=== PATIENT | male | born 1990 | race Two or more races ===

== ENCOUNTER 2020-07-31 17:46 | Inpatient (IN) | payer SELFPAY ==
[~2020-07-31] VITALS: Ht 175.3 cm; Wt 108.0 kg
[2020-07-31 20:12] LABS: Basophils # (auto) 0.1 10 ^3/uL (0-0.2); Basophils % (auto) 0.4 % (0.0-2.0); Eosinophils # (auto) 0 10 ^3/uL (0-0.8); Eosinophils % (auto) 0.1 % (0.0-7.0); Hematocrit 46.9 % (41.0-53.0); Hemoglobin 15.7 g/dL (13.5-17.5); Lymphocytes # (auto) 0.7 10 ^3/uL (0.4-5.4); Lymphocytes % (auto) 3.9 % (10.0-50.0); Mean Corpuscular Hemoglobin 30.7 pg (28.0-32.0); Mean Corpuscular Hgb Conc. 33.5 g/dL (32.0-36.0); Mean Corpuscular Volume 91.5 fL (80.0-100.0); Monocytes # (auto) 0.9 10 ^3/uL (0-1.3); Monocytes % (auto) 4.6 % (0.0-12.0); Neutrophils # (auto) 17.1 10 ^3/uL (1.6-8.6); Nucleated Red Blood Cells % 0.1 %; Platelet Count (auto) 242 10^3/uL (140-450); Red Blood Cells 5.13 10^6/uL (4.5-5.90); Red Cell Distribution Width 14.4 % (11.8-14.3); White Blood Cell 18.8 10^3/uL (4.4-10.8)
[2020-07-31 20:29] LABS: INR 1.03 (0.9-1.15); Partial Thromboplastin Time 26.6 sec (23.0-31.2)
[2020-07-31 20:31] LABS: Albumin 4.4 g/dL (3.4-5.0); Calcium 9.6 mg/dL (8.5-10.1)
[2020-07-31 20:35] LABS: BUN/Creatinine Ratio 11.6; Bilirubin, Total 0.9 mg/dL (0.2-1.0); Total Protein 8.3 g/dL (6.4-8.2)
[2020-07-31] MEDS ORDERED: ONDANSETRON HCL 4 MG/2 ML VIAL IV ONE (22:30)
[2020-07-31] MEDS ORDERED: MORPHINE SULFATE 4 MG/ML SYR/VIAL IV ONE (22:30)
[2020-08-01] MEDS ORDERED: cefTRIAXone 1GM/50ML D5W 50 ML IV ONE (05:15)
[2020-08-01] MEDS ORDERED: TEMAZEPAM 15 MG CAP PO PRN (06:15)
[2020-08-01] MEDS ORDERED: ACETAMINOPHEN 325 MG TAB PO PRN (06:15)
[2020-08-01] MEDS ORDERED: ONDANSETRON HCL 4 MG/2 ML VIAL IV PRN (06:15)
[2020-08-01] MEDS ORDERED: HYDROcodone-ACET 5/325MG TAB PO PRN (06:15)
--- NOTE | 2020-08-01 08:30 | NUR ---
MS admit from ER LISA JAIN admitted to tele/MS after SBAR received. Patient oriented to BROOKLYNN VUONG RN primary RN, unit, room, bed, and unit policies regarding patient care and visiting hours. Patient weighed by bedscale and encouraged to call if they need something. All questions and concerns addressed, patient verbalized understanding.
[2020-08-01 10:27] VITALS: BP 107/58
[2020-08-01] MEDS: FAMOTIDINE 20 MG TAB PO SCH ×2 (10:54→22:06)
[2020-08-01] MEDS: cefTRIAXone 1GM/50ML D5W 50 ML IV SCH (10:54)
[2020-08-01] MEDS: ENOXAPARIN SOD 40 MG/0.4 ML SYRINGE SC SCH (10:55)
[2020-08-01 12:09] VITALS: BP 112/64
[2020-08-01] MEDS: CLINDAMYCIN 600MG IV 50 ML IV SCH ×2 (15:16→22:07)
[2020-08-01 16:20] VITALS: BP 125/72
--- NOTE | 2020-08-01 17:04 | NUR ---
Discharge instructions given as ordered. Follow-up appointment information given and encourage patient to attend. All questions and concerns addressed. Patient verbalized understanding.IV removed with catheter intact, pressure dressing applied.Patient taken to vehicle declined wheelchair but ambulated with steady gait with all personal belongings, accompanied by staff and family member. No distress noted at time of departure.
--- NOTE | 2020-08-01 19:34 | NUR ---
RECEIVED PHONE CALL FROM MD SÁNCHEZ AND WANTED TO KNOW IF PATIENT HAS NEW IV INSERTED, TO RESUME IV ANTIBIOTICS -ORDERS ARE IN AND WILL GIVE ANTIBIOTICS AT TIMES THEY ARE ORDERED, AND TO OBTAIN A URINE SAMPLE. UPON ASSESSMENT, PATIENT HAS A IV 20 G ON THE LEFT AC INSERTED TODAY BY DAY RN. AND WILL OBTAIN URINE SAMPLE FROM PATIENT.
--- NOTE | 2020-08-01 19:42 | NUR ---
Patient was discharged as instructed but had to returned to unit. Patient came back Vital signs stable, I reassessed the patient , assessment within range. No distress patient is in bed resting comfortably. came to assess and talk to the patient.
[2020-08-01 20:32] LABS: Urine Bacteria NONE SEEN /hpf (None Seen); Urine Blood Negative /uL (Negative); Urine Mucus FEW (None Seen); Urine Specific Gravity 1.027 (1.001-1.035); Urine WBC 2 /hpf (0 - 3)
[2020-08-01 20:50] LABS: Amphetamine Screen, Urine NEGATIVE (NEGATIVE); Barbiturate Scree,Urine NEGATIVE (NEGATIVE); Benzodiazephine Screen, Urine NEGATIVE (NEGATIVE); Cannabinoid Screen, Urine NEGATIVE (NEGATIVE); Cocaine Screen, Urine NEGATIVE (NEGATIVE); Opiate Scree,Urine NEGATIVE (NEGATIVE); Phencyclidine Screen, Urine NEGATIVE (NEGATIVE)
[2020-08-01 22:00] VITALS: BP 126/68
[2020-08-02 05:00] VITALS: BP 111/70
[2020-08-02 06:08] LABS: Basophils # (auto) 0 10 ^3/uL (0-0.2); Basophils % (auto) 0.4 % (0.0-2.0); Eosinophils # (auto) 0.2 10 ^3/uL (0-0.8); Eosinophils % (auto) 1.9 % (0.0-7.0); Hematocrit 44.8 % (41.0-53.0); Hemoglobin 15.1 g/dL (13.5-17.5); Lymphocytes # (auto) 2.1 10 ^3/uL (0.4-5.4); Lymphocytes % (auto) 26.1 % (10.0-50.0); Mean Corpuscular Hgb Conc. 33.7 g/dL (32.0-36.0); Mean Corpuscular Volume 92.1 fL (80.0-100.0); Neutrophils # (auto) 4.7 10 ^3/uL (1.6-8.6); Neutrophils % (auto) 59.6 % (37.0-80.0); Nucleated Red Blood Cells % 0.2 %; Platelet Count (auto) 196 10^3/uL (140-450); Red Blood Cells 4.86 10^6/uL (4.5-5.90); Red Cell Distribution Width 14.7 % (11.8-14.3); White Blood Cell 7.9 10^3/uL (4.4-10.8)
[2020-08-02] MEDS: CLINDAMYCIN 600MG IV 50 ML IV SCH ×2 (06:21→14:28)
[2020-08-02 06:23] LABS: Potassium 3.6 mmol/L (3.5-5.1)
[2020-08-02 06:29] LABS: BUN/Creatinine Ratio 10.7; Calcium 9.2 mg/dL (8.5-10.1)
--- NOTE | 2020-08-02 07:25 | NUR ---
provided report to day rn. patient is resting in bed with no signs of distress. urines was sent earlier in shift. redness on left leg decreased.
[2020-08-02 09:00] VITALS: BP 109/46
[2020-08-02] MEDS: cefTRIAXone 1GM/50ML D5W 50 ML IV SCH (11:20)
[2020-08-02] MEDS: FAMOTIDINE 20 MG TAB PO SCH (11:20)
[2020-08-02] MEDS: ENOXAPARIN SOD 40 MG/0.4 ML SYRINGE SC SCH (11:21)
[2020-08-02 13:00] VITALS: BP 120/79
--- NOTE | 2020-08-02 16:27 | NUR ---
Called to let him know that I will be discharging the patient as ordered. MD aware and said to discharge patient. Also got an order to give him 2 days off work due to light activity ordered for patient.
[2020-08-02 16:51] VITALS: BP 105/48
== END 2020-08-02 18:15 | disposition home or self-care (01) | DRG 603 ==
LOC: ER 17:46 → OVERFLOW 17:47 → CENTRAL 08-01 08:33
PROVIDERS: ADMIT Nurse Practitioner; ATTEND Internal Medicine
DX: L03.116 Cellulitis of left lower limb (principal); F17.210 Nicotine dependence, cigarettes, uncomplicated; M10.9 Gout, unspecified; Z86.718 Personal history of other venous thrombosis and embolism
CPT/HCPCS: 36415; 71045; 73700; 80048; 80053; 80307; 81001; 83036; 85025; 85379; 85610; 85730; 87040; 87426; 93971; G0378; J0696; J2405; J3490